=== PATIENT | female | born 1965 | race Caucasian/White ===

== ENCOUNTER 2017-11-22 17:01 | Emergency (ER) | payer OTHER ==
[~2017-11-22] VITALS: Ht 160 cm; Wt 89.8 kg
[2017-11-22] MEDS ORDERED: SYMBICORT80 MCG/4.1 INH (17:23)
[2017-11-22] MEDS ORDERED: NORCO 5-325 TA1 EACH PO (18:15)
[2017-11-22 18:42] VITALS: BP 137/97
== END 2017-11-22 18:44 | disposition home or self-care (01) ==
LOC: M.ERS 17:01
DX: S82.892A Other fracture of left lower leg, initial encounter for closed fracture (principal); W00.1XXA Fall from stairs and steps due to ice and snow, initial encounter; Y93.89 Activity, other specified; Y92.89 Other specified places as the place of occurrence of the external cause; Y99.8 Other external cause status